=== PATIENT | male | born 1955 | race Caucasian/White ===

== ENCOUNTER 2018-07-28 17:09 | Observation (INO) | payer BC ==
[~2018-07-28 17:09] MED LIST: ISOVUE-370 76%-LOCM 1 ML ONE
--- NOTE | 2018-07-28 19:16 | CT ---
FEXAM: CT angiogram chest and abdomen with IV contrast and 3-D MIP reconstructions PROVIDED CLINICAL HISTORY: Chest pain COMPARISON: 09/13/2007 FINDINGS: Postoperative changes of CABG are demonstrated. The heart, pericardium and great vessels demonstrate an otherwise unremarkable CT appearance. There is no evidence for aortic dissection. There is no evid ence for central or segmental pulmonary embolus. The lungs are free of significant opacity. No pleura l fluid or pneumothorax apparent. No evidence for thoracic lymph node enlargement. The airway appears patent and of normal caliber. The solid abdominal organs are suboptimally evaluated in the arterial phase of contrast but demonstra te an unremarkable CT appearance for the phase of contrast in which the study was acquired. Vascular calcifications are noted. No bowel dilatation, inflammatory fat stranding, free fluid or free air david arent. The osseous structures demonstrate no concerning lytic or blastic lesions. IMPRESSION: No evidence for an acute process.
[2018-07-28 21:11] LABS: Troponin I Less than 0.010 ng/mL (< 0.028)
[2018-07-28 22:01] VITALS: BMI 30.9
[2018-07-29 01:06] LABS: Troponin I Less than 0.010 ng/mL (< 0.028)
[2018-07-29] MEDS ORDERED: Acetaminophen 325 MG TAB PO PRN (02:03)
[2018-07-29] MEDS ORDERED: Acetaminophen 650 MG Suppository PR PRN (02:03)
[2018-07-29] MEDS ORDERED: Ondansetron PF 4 MG/2 ML Vial IVP PRN (02:03)
[2018-07-29] MEDS ORDERED: Ondansetron ODT 4 MG TAB PO PRN (02:03)
[2018-07-29] MEDS ORDERED: Guaifenesin DM 100-10/5 ML UDCUP PO PRN (02:03)
[2018-07-29] MEDS ORDERED: Dextrose 5% in Water 1,000 ML IV PRN (02:27)
[2018-07-29] MEDS ORDERED: Dextrose 50% Abboject 50 ML SYRINGE SLOW IVP PRN (02:27)
[2018-07-29] MEDS ORDERED: HumaLOG 300 UNITS/3 ML VIAL SC PRN ×2 (02:27)
--- NOTE | 2018-07-29 03:18 | HP ---
CHIEF COMPLAINT: Episode of chest pain with presyncopal episode. HISTORY OF PRESENT ILLNESS: Mr. Loya is a pleasant 62-year-old man with a background of coronary artery disease who had stents placed in 2001 and then a CABG in 2012 at which time, the stents were removed. He also has a background history of hypertension, type 2 diabetes, hypercholesterolemia, and COPD. The patient was following with Dr. Bui, but has not seen him for 3 years. He presents today after having a forceful coughing fit, lasting approximately 1 minute, followed by a sharp, stabbing pain on the left side of his chest and feelings of "doom." He felt as if he was going to collapse. The patient did not fall, never recalls immediately calling the EMS. He denies any diaphoresis, nausea, or vomiting. He was back to baseline within a few minutes and has had no repeat episodes since then. The patient denies experiencing any palpitations. He reports a chronic cough associated with his chronic bronchitis and states he seldom is able to bring up phlegm, which is usually clear. Denies any purulent sputum or hemoptysis. Has not had any lightheadedness or dizziness before or since then. The patient states he has had episodes in the past in which coughing fits are followed by lightheadedness and blurred vision that resolves very quickly within seconds. He has not had an episode like this before. The cough has become more forceful and he does report a constant itching sensation in his throat. He reports noting wheezing at baseline and that has not worsened. He had been recommended inhalers, but feels reluctant to use one. REVIEW OF SYSTEMS: He denies having any fevers, chills, or sweats. Reports having normal appetite. No recent weight loss. Denies having any abdominal pain or cramping, but has been noting recurring umbilical hernia which has been repaired in the past. He feels this is being exacerbated by the forceful coughing fits. He denies having any diarrhea, constipation, melena, hematochezia. Denies having any urinary symptoms. All other review of systems apart from those mentioned in the HPI are negative. PAST MEDICAL HISTORY: 1. History of kidney stones. 2. Peptic ulcer disease. 3. Previous NE. 4. Stents x2 placed in 2002. Removed in 2012, at which time he had a CABG. 5. Hypertension. 6. Type 2 diabetes. 7. Hypercholesterolemia. 8. Hernia repair. SOCIAL HISTORY: The patient reports smoking marijuana. Denies any further tobacco use since more than 10 years ago. Denies any heavy alcohol. ALLERGIES: NORCO CAUSES HIVES. CURRENT MEDICATIONS: 1. Lisinopril. 2. Metoprolol. 3. Metformin. 4. Aspirin. 5. Atorvastatin. 6. Prilosec. 7. Glipizide. PHYSICAL EXAMINATION: GENERAL: The patient appears well developed, well nourished, and is in no acute distress. VITAL SIGNS: Temperature 97.6, pulse is 67, respirations 17, O2 saturation 98% on room air, BP 141/61. HEENT: Normocephalic and atraumatic. Pupils are equal, round, and reactive to light. Sclerae are without icterus. Oropharynx is clear. NECK: Supple without lymphadenopathy. LUNGS: Notable for inspiratory and expiratory wheezing at the bilateral apices. No crackles. CARDIAC: Regular rate and rhythm without audible murmurs, rubs, or gallops. No chest wall tenderness. ABDOMEN: Soft, nontender, nondistended. Normoactive bowel sounds present. No guarding or rigidity. No renal angle tenderness. EXTREMITIES: Without any edema, calf pain, or tenderness. LABORATORY DATA: White blood count 6.8, hemoglobin 13.9, hematocrit 39.3, platelets 273. D-dimer 221. Sodium 140, potassium 4.2, chloride 104, carbon dioxide 23, anion gap 17, BUN 15, creatinine 1.18, GFR 63, glucose 361, calcium 9.5, total bilirubin 0.4, AST 20, ALT 18, alkaline phosphatase 106. Troponin negative x3. Total protein 6.7, albumin 4.2. IMAGING DATA: 1. Chest x-ray. No acute intrathoracic findings. 2. CT dissection. No evidence for any acute process. Vascular calcifications are noted. IMPRESSION AND PLAN: Mr. Loya is a pleasant 62-year-old man who is being admitted for management of the following. 1. Chest pain. The patient has extensive cardiac history. He has undergone initial investigations including serial troponins which were all negative. He also underwent an ECG in the ER, which was unremarkable. He was admitted for chest pain rule out. He had a D-dimer that was elevated, however, underwent a CT dissection that was unremarkable. The patient has had no further episodes since then. Continue to monitor. We will obtain a BNP. At this present time, Dr. Horn has advised a consult to Cardiology, Dr. Bui. No indication for further workup such as echo or stress test at this present time. 2. Presyncope. It is likely that the chest pain and presyncopal episode were precipitated by the forceful coughing fit. He has had blurred vision and lightheadedness associated with coughing fits in the past. This episode lasted approximately 1 minute. We will give guaifenesin DM for cough. 3. Chronic obstructive pulmonary disease. The patient states he experiences wheezing at baseline and is not different from today. He has refused inhalers in the past, but is agreeable to receive DuoNeb at this present time. We will reassess breath sounds following nebulizer treatment. Perhaps, he will consider going home on an inhaler if symptoms improve and he is cleared for discharge. 4. Diabetes mellitus. Resume home medications. Initiate insulin sliding scale and monitor glucose. 5. Hypertension. Resume home medications and monitor blood pressure. 6. Gastrointestinal prophylaxis. 7. Deep venous thromboembolism prophylaxis. 8. Full code status. His surrogate decision maker is his , Irma Loya. The patient's case was discussed with Dr. Horn who agrees with the plan of care as described above. Job ID: [id number] [facility]
[2018-07-29 05:24] LABS: #Basophils 0.1 thou/uL (0.0-0.2); #Eosinphils 0.4 thou/uL (0.0-0.7); #Lymphocytes 1.4 thou/uL (1.20-3.40); #Monocytes 0.8 thou/uL (0.11-0.59); #Neutrophils 3.8 thou/uL (1.40-6.50); %Basophils 0.9 % (0.0-1.0); %Eosinophils 5.8 % (0.0-10.0); %Lymphocytes 22.2 % (21.0-51.0); %Monocytes 12.6 % (0.0-10.0); %Neutrophils 58.5 % (42.0-75.0); Hemoglobin 13.1 g/dL (14.0-18.0); Mean Corpuscular HGB CONC 35.1 g/dL (32.0-36.0); Mean Corpuscular Hemoglobin 33.1 pg (27.0-31.0); Mean Corpuscular Volume 94.2 fL (78.0-98.0); Mean Platelet Volume 8.5 fL (7.4-10.4); Platelet Count 222 thou/uL (130-400); RBC Distribution Width 12.1 % (11.5-14.5); Red Blood Cell (RBC) Count 3.96 mill/uL (4.70-6.10); White Blood Cell (WBC) Count 6.5 thou/uL (4.8-10.8)
[2018-07-29 05:28] LABS: Hemoglobin A1c 8.9 % (4.0-6.0)
[2018-07-29 05:46] LABS: Anion Gap 13 mmol/L (10-20); BUN (Urea Nitrogen) 12 mg/dL (8.4-25.7); Calc. Creatinine Clearance 130 mL/min (70-130); Calcium 9.2 mg/dL (7.8-10.44); Carbon Dioxide 23 mmol/L (22-29); Cardiac Risk 5.7 (Less than 4.5); Chloride 107 mmol/L (98-107); Cholesterol 189 mg/dl (< 200 Desired); Estimated GFR-MDRD Greater than 90; Glucose 163 mg/dL (70-105); HDL Cholesterol 33 mg/dL (>60 Neg Risk); LDL Cholesterol, Calculated 103 mg/dL; Potassium 4.4 mmol/L (3.5-5.1); Sodium 139 mmol/L (136-145); Triglycerides 266 mg/dL (Less than 150)
[2018-07-29] MEDS ORDERED: Lisinopril 20 MG TAB PO SCH (09:00)
[2018-07-29] MEDS ORDERED: Aspirin 81 mg Enteric Coated Tablet PO SCH ×2 (09:00→21:00)
[2018-07-29] MEDS: FLUoxetine HCl 20 MG CAP PO SCH (09:43)
[2018-07-29] MEDS: Ubidecarenone 50 MG CAP PO SCH (09:43)
[2018-07-29] MEDS: Famotidine 20 MG TAB PO SCH ×2 (09:44→22:07)
[2018-07-29] MEDS: Enoxaparin Sodium 40 MG/0.4 ML SYRINGE SC SCH (13:20)
--- NOTE | 2018-07-29 16:51 | PDOC.EVN ---
Event Note - Event Note Event Note: Patient lying in bed with family at bedside. He denies any further chest pain, shortness of breath or abdominal pain. He denies palpitations. He is complaining of a mild headache. He could not follow NPO instructions for stress test, therefore will undergo resting portion today and stress portion tomorrow. He will likely be discharged home if stress test negative, however cardiology will be consulted if abnormal
[2018-07-29] MEDS: Ibuprofen 200 MG TAB PO PRN ×2 (17:01→17:40)
[2018-07-29] MEDS ORDERED: Temazepam 15 MG CAP PO PRN (20:43)
[2018-07-29] MEDS ORDERED: traMADol HCl 50 MG TAB PO PRN (20:43)
[2018-07-29] MEDS ORDERED: Atorvastatin Calcium 40 MG TAB PO SCH (21:00)
--- NOTE | 2018-07-30 01:15 | CON ---
DATE OF CONSULTATION: HISTORY: Jcarlos Loya is a 62-year-old white male, I initially evaluated in February 2002. Six days prior to today, he began to notice exertional chest pressure radiating to his left arm that would occur when he was at work, walking long distances, or carrying something. This would resolve with rest in 5 to 10 minutes. On the day prior to his admission, he had 5 to 6 episodes and the night prior to admission, he had his first episode of nocturnal pain, awakening him every 30 minutes, lasting approximately 10 minutes. He then went to the emergency room, was diaphoretic and in the ER was given Ecotrin as well as Plavix 300 mg, nitroglycerin paste was placed. He continued to have the discomfort. IV nitroglycerin was started. He was bradycardic with heart rates in the 30s. He had some nausea associated with that. This was all performed at [facility] and then he was transferred to [place]. EKG showed inverted T-waves in lead III and F. He underwent catheterization, had mild inferior hypokinesis with ejection fraction of 55% to 60%. Left main, LAD, and circumflex were normal. The right coronary artery had a 95% mid stenosis. Express II 4.0 x 20 mm and 4.0 x 12 mm stents were placed. 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 Stents were post dilated to 5 mm. He did have elevation in his cardiac enzymes with a peak CK of 404, CK-MB 35.7, and a troponin I of 10.4. He was placed on Toprol for elevated blood pressure and Lipitor for hypercholesterolemia. Mr. Loya continued to be followed in the office and underwent stress echo testing in August 2002 and December 2003 which were negative for ischemia. In September 2007, he underwent adenosine Cardiolite testing which revealed a fixed inferior wall defect with no evidence of reversible ischemia. He was not seen from February 2008 until August 2012 when he presented to the hospital. He had stopped taking Lipitor. He also had stopped taking aspirin 1 year prior after he was told that he had peptic ulcer disease. He presented with left arm discomfort, radiating somewhat to the left upper chest, lasting up to 20 minutes at a time. He also had some flank pain and when he went to [facility], underwent CT stone protocol, was found not to have any nephrolithiasis like he had in the past. He did have elevated cardiac enzymes and was transferred. He underwent cardiac catheterization which revealed moderate anteroapical hypokinesis with ejection fraction of 45% to 50%. There was a 20% left main stenosis, 70% proximal LAD, 60% distal LAD, 99% mid circumflex. The right coronary artery had a 60% proximal and 60% mid stenosis. There was 60% in-stent restenoses of the right coronary artery. He underwent CABG x3 by Dr. Sheldon with VILLANUEVA to the LAD, radial artery to the distal circumflex, and saphenous vein graft to the right PDA. Postoperatively, he had rapid atrial fibrillation and was treated with Cardizem, amiodarone, and a beta aaron. He was last seen in the office in March 2015 complaining of mild shortness of breath after walking one mile. He had cough productive of yellow sputum. I had not seen him since that time, and he was on Zetia as well as the atorvastatin, he had high LDL levels and consideration was given to possibly starting Repatha or Praluent. He now is admitted with a near syncopal spell. He states that every morning he has very severe coughing and at times will cough up some yellow sputum. Yesterday, he had a particularly bad episode and felt as if he was passing out where his vision darkened. He also had left-sided sharp chest pain lasting 15 seconds in 3 different areas. Cardiac enzymes have been unremarkable. In the emergency room, he underwent CT dissection protocol, which revealed no evidence of an acute process. He has not had any further symptoms since admission. PAST MEDICAL HISTORY: Hypertension, hypercholesterolemia, diabetes, peptic ulcer disease, nephrolithiasis, myocardial infarction. OPERATIONS: Umbilical herniorrhaphy, lithotripsy, stent placed in the right coronary artery, and CABG x3. SOCIAL HISTORY: He stopped smoking 15 years ago. Continues to smoke marijuana. He denies any alcohol intake. MEDICATIONS: 1. Aspirin 81 daily. 2. Atorvastatin 80 at bedtime. 3. Fluoxetine 60 daily. 4. Glipizide 5 mg p.r.n. 5. Lisinopril 20 daily. 6. Metformin 1000 b.i.d. 7. Metoprolol 50 daily. 8. CoQ10 at 100 daily. 9. When he was last seen in the office, he also was on Zetia, which he is not currently taking and he thinks he may have stopped taking it due to the tobar. ALLERGIES: CODEINE. REVIEW OF SYSTEMS: 10-point review of systems unremarkable. PHYSICAL EXAMINATION: VITAL SIGNS: Blood pressure 143/77, pulse 61. HEENT: PERRL. NECK: Supple. CHEST: Reveals expiratory wheezing. CARDIOVASCULAR EXAMINATION: S1, S2 normal without any S3, S4, or murmurs. ABDOMEN: Normal bowel sounds without tenderness or organomegaly. EXTREMITIES: Revealed no clubbing, cyanosis, or edema. NEUROLOGIC: Grossly intact. SKIN: Warm and dry. LABORATORY DATA: EKG revealed normal sinus rhythm and is normal. CT dissection was unremarkable. Chest x-ray did not show any acute findings. Hemoglobin 13.1, hematocrit 37.3, white count 6500, platelets 222,000. D-dimer 2.21. Sodium 139 , potassium 4.4, chloride 107, carbon dioxide 27, BUN 12, creatinine 0.86. Cholesterol 189, triglycerides 266, HDL 33, and LDL 103. Cardiac enzymes were normal x4. IMPRESSION: 1. Cough with near syncope. It does not sound as if he had true syncope. His cough could be due to chronic bronchitis and chronic obstructive pulmonary disease, but also maybe due to his LUZ inhibitor. 2. Sharp chest discomfort lasting 15 seconds which does not sound cardiac in nature. 3. Chronic obstructive pulmonary disease, chronic bronchitis with expiratory wheezing. 4. Hypertension. 5. Hypercholesterolemia, under poor control. The patient no longer taking Zetia. 6. Former smoker. 7. Marijuana abuse. 8. Diabetes. 9. Positive family history. 10. History of non-bleeding peptic ulcer. PLAN: Lisinopril will be discontinued and instead, he will be placed on losartan. He also will be started on neb treatments with his expiratory wheezing at this time. Pulmonary function tests will be obtained. He will undergo e-SENS Cardiolite testing. Job ID: [id number] [facility]
[2018-07-30] MEDS ORDERED: Losartan 25 MG TAB PO SCH (09:00)
[2018-07-30] MEDS ORDERED: Ezetimibe 10 MG TAB PO SCH (09:00)
[2018-07-30] MEDS: Enoxaparin Sodium 40 MG/0.4 ML SYRINGE SC SCH (09:09)
[2018-07-30] MEDS: Famotidine 20 MG TAB PO SCH (09:10)
[2018-07-30] MEDS: Ubidecarenone 50 MG CAP PO SCH (09:11)
[2018-07-30] MEDS: FLUoxetine HCl 20 MG CAP PO SCH (09:11)
--- NOTE | 2018-07-30 11:45 | NM ---
NUCLEAR MEDICINE CARDIAC PERFUSION EXAMINATION WITH EJECTION FRACTION: COMPARISON: 06/08/13. HISTORY: 62-year-old male with chest pain. History of CABG and coronary artery disease. TECHNIQUE: A two day nuclear medicine cardiac perfusion examination was performed. Rest images were obtained usi ng 29.6 mCi of technetium-99m sestamibi. Stress images were obtained using 31.1 mCi of technetium-99m sestamibi and Lexiscan. FINDINGS: Tomographic images show no fixed or reversible perfusion defects. Gated images show normal wall motio n with an ejection fraction of 70%. EDV: 109 mL LHR: 0.3 TID: 0.78 IMPRESSION: No evidence of ischemia. POS: TPC
[2018-07-30 11:57] VITALS: BP 138/73; TEMP 98.1
[2018-07-30] MEDS ORDERED: Regadenoson 0.4 MG/5 ML SYRINGE ONE (16:22)
--- NOTE | 2018-08-05 14:29 | STRESS ---
Acquisition Time: 2018-07-30 09:38:14 Total Exercise Time: 00:01:00 Test Indications: CHEST PAIN Medications: Protocol: LEXISCAN Max HR: 116 BPM 72% of Pred: 160 BPM Max BP: 140/088 mmHG Max Work Load: 1.0 METS RESTING ECG: NORMAL SINUS RHYTHM AT 75 BPM WITH POOR R-WAVE PROGRESSION, NON-SPECIFIC ST SEGMENT CHANGES AND RARE PVC'S SYMPTOMS: NAUSEA NORMAL BP RESPONSE ECTOPY: RARE PVC'S ECG STRESS: PRONOUNCED ST SEGMENT AND T-WAVE CHANGES WITH LEXISCAN INFUSION INTERPRETATION: INDETERMINATE ECG/AWAIT NUCLEAR IMAGES FOR DEFINITVE DIAGNOSIS COMMENTS: INFERIOR ST SEGMENT DOWNSLOPING IN LEADS: II, III, AVF NON-SPECIFIC LATERAL ST SEGMENT CHANGES IN LEADS: V5-V6 Confirmed by GATITO ACUNA ELLEN ([id number]) on 08/05/2018 2:28:59 PM Referred By: MD Stefan ROMERO Confirmed By:AZAEL ACUNA PA-C
== END 2018-07-30 13:56 | disposition home or self-care (01) ==
LOC: ERS 17:09 → 2SW 21:42
PROVIDERS: ADMIT Family Medicine; ATTEND Family Medicine
DX: R55 Syncope and collapse (principal); R07.9 Chest pain, unspecified; I25.10 Atherosclerotic heart disease of native coronary artery without angina pectoris; I10 Essential (primary) hypertension; I25.2 Old myocardial infarction; E78.00 Pure hypercholesterolemia, unspecified; E11.9 Type 2 diabetes mellitus without complications; J42 Unspecified chronic bronchitis; F12.10 Cannabis abuse, uncomplicated; K27.9 Peptic ulcer, site unspecified, unspecified as acute or chronic, without hemorrhage or perforation; Z95.5 Presence of coronary angioplasty implant and graft; Z95.1 Presence of aortocoronary bypass graft; Z88.5 Allergy status to narcotic agent; Z87.442 Personal history of urinary calculi; Z87.891 Personal history of nicotine dependence; Z79.82 Long term (current) use of aspirin; Z79.84 Long term (current) use of oral hypoglycemic drugs; Z79.899 Other long term (current) drug therapy
CPT/HCPCS: 36415; 36416; 71275; 78452; 80048; 80061; 83036; 83880; 84484; 85025; 85379; 93005; 93017; 93306; 94640; 96372; A9500; G0378; J1650; J2785; J7620; Q9966

== ENCOUNTER 2022-05-31 18:23 | Inpatient (IN) | payer BC ==
[2022-05-31 19:15] LABS: #Basophils 0.1 thou/uL (0.0-0.2); #Eosinphils 0.4 thou/uL (0.0-0.7); #Lymphocytes 1.2 thou/uL (1.20-3.40); #Monocytes 1.3 thou/uL (0.11-0.59); #Neutrophils 7.7 thou/uL (1.40-6.50); %Basophils 0.5 % (0.0-1.0); %Eosinophils 3.5 % (0.0-10.0); %Lymphocytes 11.4 % (21.0-51.0); %Neutrophils 72.6 % (42.0-75.0); Hemoglobin 14.8 g/dL (14.0-18.0); Mean Corpuscular HGB CONC 34.9 g/dL (32.0-36.0); Mean Corpuscular Volume 94.7 fl (78.0-98.0); Mean Platelet Volume 8.1 fL (7.4-10.4); Platelet Count 288 10x3/uL (130-400); RBC Distribution Width 12.1 % (11.5-14.5); Red Blood Cell (RBC) Count 4.49 mill/uL (4.70-6.10); White Blood Cell (WBC) Count 10.6 10x3/uL (4.8-10.8)
[2022-05-31] MEDS ORDERED: Aspirin Chewable 81 MG TAB ONE (19:34)
[2022-05-31 19:38] LABS: ALT (SGPT) 14 U/L (8-55); AST (SGOT) 16 U/L (5-34); Albumin 4.2 g/dL (3.4-4.8); Alkaline Phosphatase 105 U/L (40-110); Anion Gap 14 mmol/L (10-20); BUN (Urea Nitrogen) 16 mg/dL (8.4-25.7); Bilirubin, Total 0.4 mg/dL (0.2-1.2); Calc. Creatinine Clearance 0 mL/min (70-130); Calcium 9.9 mg/dL (7.8-10.44); Carbon Dioxide 27 mmol/L (23-31); Chloride 102 mmol/L (98-107); Estimated GFR 70; Globulin 2.7 g/dL (2.4-3.5); Glucose 261 mg/dL (80-115); Magnesium 1.8 mg/dL (1.6-2.6); Protein, Total 6.9 g/dL (5.8-8.1); Sodium 139 mmol/L (136-145)
[2022-05-31 19:58] LABS: INR-International Normal Ratio 0.9; PTT 25.8 sec (22.9-36.1); Prothrombin Time 12.7 sec (12.0-14.7)
[2022-05-31] MEDS ORDERED: Acetaminophen 500 MG TAB ONE (21:13)
[2022-06-01 00:03] LABS: Troponin I 0.035 ng/mL (< 0.028)
[2022-06-01] MEDS ORDERED: Ondansetron ODT 4 MG TAB PO PRN (00:38)
[2022-06-01] MEDS ORDERED: Loperamide HCl 2 MG CAP PO PRN (00:38)
[2022-06-01] MEDS ORDERED: Dextrose 50% Abboject 50 ML SYRINGE SLOW IVP PRN (00:40)
[2022-06-01] MEDS ORDERED: HumaLOG 300 UNITS/3 ML VIAL SC PRN (00:40)
[2022-06-01] MEDS ORDERED: Dextrose 5% in Water 1,000 ML IV PRN (00:40)
[2022-06-01] MEDS ORDERED: Acetaminophen 325 MG TAB ONE (01:10)
[2022-06-01] MEDS ORDERED: Acetaminophen 650 MG Suppository ONE (01:10)
[2022-06-01] MEDS: Acetaminophen 325 MG TAB PO PRN ×2 (01:16→18:43)
[2022-06-01 02:10] LABS: Hemoglobin A1c 9.1 % (4.0-6.0)
[2022-06-01 02:26] LABS: Anion Gap 14 mmol/L (10-20); BUN (Urea Nitrogen) 13 mg/dL (8.4-25.7); Calc. Creatinine Clearance 0 mL/min (70-130); Carbon Dioxide 23 mmol/L (23-31); Chloride 106 mmol/L (98-107); Estimated GFR 84; Glucose 169 mg/dL (80-115); Potassium 3.8 mmol/L (3.5-5.1); Sodium 139 mmol/L (136-145); Troponin I 0.028 ng/mL (< 0.028)
[2022-06-01] MEDS ORDERED: Ondansetron ODT 4 MG TAB ONE (02:40)
[2022-06-01 02:47] VITALS: BMI 27.1
[2022-06-01] MEDS ORDERED: Baclofen 10 MG TAB PO SCH (03:30)
[2022-06-01] MEDS ORDERED: Famotidine 20 MG TAB ONE (09:49)
[2022-06-01] MEDS: Apixaban 5 MG TAB PO SCH ×2 (09:56→20:08)
[2022-06-01] MEDS: CO Q-10 CAPSULE 100 MG PO SCH (09:57)
[2022-06-01] MEDS: FLUoxetine HCl 20 MG CAP PO SCH (09:57)
[2022-06-01] MEDS: Losartan 25 MG TAB PO SCH (09:57)
[2022-06-01] MEDS: Ezetimibe 10 MG TAB PO SCH (09:57)
[2022-06-01] MEDS: metFORMIN 500 MG TAB PO SCH ×3 (09:57→20:13)
[2022-06-01] MEDS: Aspirin Chewable 81 MG TAB PO SCH (09:57)
[2022-06-01] MEDS: Famotidine 20 MG TAB PO SCH ×2 (09:57→20:08)
[2022-06-01] MEDS ORDERED: Atorvastatin Calcium 40 MG TAB PO SCH (21:00)
[2022-06-02] MEDS: Losartan 25 MG TAB PO SCH (10:17)
[2022-06-02] MEDS: Famotidine 20 MG TAB PO SCH (10:18)
[2022-06-02] MEDS: CO Q-10 CAPSULE 100 MG PO SCH (10:18)
[2022-06-02] MEDS: Aspirin Chewable 81 MG TAB PO SCH (10:18)
[2022-06-02] MEDS: metFORMIN 500 MG TAB PO SCH (10:18)
[2022-06-02] MEDS: FLUoxetine HCl 20 MG CAP PO SCH (10:19)
[2022-06-02] MEDS: Ezetimibe 10 MG TAB PO SCH (10:20)
[2022-06-02] MEDS: Apixaban 5 MG TAB PO SCH (10:20)
[2022-06-02 13:44] VITALS: BP 141/77; TEMP 98.3
[2022-06-02] MEDS ORDERED: Dronedarone HCl 400 MG TAB PO SCH (17:00)
[2022-06-03] MEDS ORDERED: Aspirin 81 mg Enteric Coated Tablet PO SCH (09:00)
[2022-06-04] MEDS ORDERED: FLU VACC QS2022-23(6MOS UP)/PF 60 MCG/0.5 ML SYRINGE IM ONE (09:00)
== END 2022-06-02 15:40 | disposition home or self-care (01) | DRG 309 ==
LOC: ERS 18:23 → ERHOLD 23:09 → 2SW 06-01 11:31
PROVIDERS: ADMIT Student in an Organized Health Care Education/Training Program; ATTEND Internal Medicine
DX: I48.0 Paroxysmal atrial fibrillation (principal); E87.20 Acidosis, unspecified; I25.810 Atherosclerosis of coronary artery bypass graft(s) without angina pectoris; I10 Essential (primary) hypertension; E78.5 Hyperlipidemia, unspecified; E11.9 Type 2 diabetes mellitus without complications; R77.8 Other specified abnormalities of plasma proteins; J44.9 Chronic obstructive pulmonary disease, unspecified; Z88.5 Allergy status to narcotic agent; Z88.8 Allergy status to other drugs, medicaments and biological substances; Z79.84 Long term (current) use of oral hypoglycemic drugs; Z79.899 Other long term (current) drug therapy; Z95.1 Presence of aortocoronary bypass graft; Z79.82 Long term (current) use of aspirin; I25.2 Old myocardial infarction; Z98.890 Other specified postprocedural states; Z87.11 Personal history of peptic ulcer disease; Z20.822 Contact with and (suspected) exposure to COVID-19
CPT/HCPCS: 36415; 36416; 71045; 80048; 80053; 83036; 83605; 83735; 83880; 84484; 85025; 85610; 85730; 93005; 93306; 94760; 96372; 96374; 96376; J1650; Q0162; U0003; U0005

== ENCOUNTER 2022-06-03 06:32 | Observation (INO) | payer BC ==
[2022-06-03] MEDS ORDERED: Diltiazem 125 MG/25 ML ONE ×2 (07:12→16:18)
[2022-06-03] MEDS ORDERED: Famotidine/PF 20 mg/2ml Vial ONE (07:39)
[2022-06-03 07:55] LABS: #Basophils 0.1 thou/uL (0.0-0.2); #Eosinphils 0.3 thou/uL (0.0-0.7); #Monocytes 1.5 thou/uL (0.11-0.59); #Neutrophils 11.8 thou/uL (1.40-6.50); %Basophils 0.4 % (0.0-1.0); %Eosinophils 1.7 % (0.0-10.0); %Lymphocytes 6.5 % (21.0-51.0); %Monocytes 10.3 % (0.0-10.0); %Neutrophils 81.1 % (42.0-75.0); Hemoglobin 15.5 g/dL (14.0-18.0); Mean Corpuscular HGB CONC 34.9 g/dL (32.0-36.0); Mean Corpuscular Hemoglobin 32.9 pg (27.0-31.0); Mean Corpuscular Volume 94.4 fl (78.0-98.0); Mean Platelet Volume 8.1 fL (7.4-10.4); Platelet Count 310 10x3/uL (130-400); RBC Distribution Width 12.1 % (11.5-14.5); Red Blood Cell (RBC) Count 4.72 mill/uL (4.70-6.10); White Blood Cell (WBC) Count 14.5 10x3/uL (4.8-10.8)
[2022-06-03 07:59] LABS: ALT (SGPT) 12 U/L (8-55); AST (SGOT) 15 U/L (5-34); Albumin 4.2 g/dL (3.4-4.8); Alkaline Phosphatase 109 U/L (40-110); Anion Gap 15 mmol/L (10-20); BUN (Urea Nitrogen) 14 mg/dL (8.4-25.7); Bilirubin, Total 1.1 mg/dL (0.2-1.2); Calc. Creatinine Clearance 0 mL/min (70-130); Calcium 9.4 mg/dL (7.8-10.44); Carbon Dioxide 21 mmol/L (23-31); Chloride 103 mmol/L (98-107); Estimated GFR 74; Globulin 2.6 g/dL (2.4-3.5); Glucose 257 mg/dL (80-115); Potassium 3.8 mmol/L (3.5-5.1); Protein, Total 6.8 g/dL (5.8-8.1); Sodium 135 mmol/L (136-145)
[2022-06-03] MEDS ORDERED: Ketorolac Tromethamine 30 MG/ML VIAL ONE (08:54)
[2022-06-03] MEDS ORDERED: Ondansetron PF 4 MG/2 ML Vial IVP PRN (09:05)
[2022-06-03] MEDS ORDERED: Diltiazem 125 MG in Sodium Chloride 0.9% 100 ML IVPB SCH (09:15)
[2022-06-03] MEDS ORDERED: HumaLOG 300 UNITS/3 ML VIAL SC PRN (10:08)
[2022-06-03] MEDS ORDERED: Dextrose 50% Abboject 50 ML SYRINGE SLOW IVP PRN (10:08)
[2022-06-03] MEDS ORDERED: Dextrose 5% in Water 1,000 ML IV PRN (10:08)
[2022-06-03] MEDS: Sodium Chloride 0.9% 1,000 ML IV SCH ×2 (14:02→18:19)
[2022-06-03] MEDS ORDERED: HumaLOG 300 UNITS/3 ML VIAL ONE (16:42)
[2022-06-03] MEDS: Dronedarone HCl 400 MG TAB PO SCH (18:05)
[2022-06-03 18:35] VITALS: BMI 26.9
[2022-06-03] MEDS: Acetaminophen 325 MG TAB PO PRN (19:01)
[2022-06-03] MEDS: Atorvastatin Calcium 40 MG TAB PO SCH (20:12)
[2022-06-03] MEDS: Apixaban 5 MG TAB PO SCH (20:13)
[2022-06-04] MEDS: Sodium Chloride 0.9% 1,000 ML IV SCH ×4 (02:10→20:24)
[2022-06-04 05:22] LABS: #Eosinphils 0.3 thou/uL (0.0-0.7); #Lymphocytes 0.7 thou/uL (1.20-3.40); #Neutrophils 5.9 thou/uL (1.40-6.50); %Basophils 0.5 % (0.0-1.0); %Eosinophils 3.8 % (0.0-10.0); %Monocytes 12.2 % (0.0-10.0); %Neutrophils 74.6 % (42.0-75.0); Hemoglobin 13.5 g/dL (14.0-18.0); Mean Corpuscular HGB CONC 34.8 g/dL (32.0-36.0); Mean Corpuscular Hemoglobin 33.3 pg (27.0-31.0); Mean Corpuscular Volume 95.8 fl (78.0-98.0); Platelet Count 246 10x3/uL (130-400); Red Blood Cell (RBC) Count 4.05 mill/uL (4.70-6.10); White Blood Cell (WBC) Count 7.8 10x3/uL (4.8-10.8)
[2022-06-04 05:37] LABS: Anion Gap 13 mmol/L (10-20); BUN (Urea Nitrogen) 12 mg/dL (8.4-25.7); Calc. Creatinine Clearance 99 mL/min (70-130); Calcium 8.6 mg/dL (7.8-10.44); Carbon Dioxide 22 mmol/L (23-31); Chloride 107 mmol/L (98-107); Estimated GFR 88; Glucose 161 mg/dL (80-115); Potassium 3.6 mmol/L (3.5-5.1); Sodium 138 mmol/L (136-145)
[2022-06-04 06:28] LABS: Bacteria/HPF None Seen HPF (None Seen); Bilirubin Negative (Negative); Blood, Urine Negative (Negative); CAUTI Indications for Culture Fever or rigors; Clarity Clear (Clear); Glucose, Urine (Dipstick) 70 mg/dL (Negative); Ketone, Urine Negative (Negative); Leukocyte Negative Leu/uL (Negative); Nitrite Negative (Negative); Protein, Urine (Dipstick) Negative (Neg-Trace); RBC/HPF 0-3 HPF (0-3); Specific Gravity, Urine 1.016 (1.002-1.036); Squamous Epithelial None Seen HPF (0-3); Urobilinogen Normal mg/dL (Less than 2); WBC/HPF 0-3 HPF (0-3); pH, Urine 5.5 (5.0-9.0)
[2022-06-04 06:29] LABS: Urine Culture Reflex No No
[2022-06-04] MEDS: CO Q-10 CAPSULE 100 MG PO SCH (07:32)
[2022-06-04] MEDS: Dronedarone HCl 400 MG TAB PO SCH ×2 (07:32→17:10)
[2022-06-04] MEDS: FLUoxetine HCl 20 MG CAP PO SCH (07:33)
[2022-06-04] MEDS: Apixaban 5 MG TAB PO SCH ×2 (07:33→20:25)
[2022-06-04] MEDS: Aspirin 81 mg Enteric Coated Tablet PO SCH (07:33)
[2022-06-04] MEDS: Ezetimibe 10 MG TAB PO SCH (07:33)
[2022-06-04] MEDS: Losartan 25 MG TAB PO SCH (07:34)
[2022-06-04] MEDS: Acetaminophen 325 MG TAB PO PRN (13:42)
[2022-06-04] MEDS: Atorvastatin Calcium 40 MG TAB PO SCH (20:25)
[2022-06-05] MEDS: Sodium Chloride 0.9% 1,000 ML IV SCH ×2 (05:01→05:02)
[2022-06-05 05:04] LABS: #Basophils 0.1 thou/uL (0.0-0.2); #Eosinphils 0.3 thou/uL (0.0-0.7); #Lymphocytes 0.9 thou/uL (1.20-3.40); #Monocytes 0.8 thou/uL (0.11-0.59); #Neutrophils 3.9 thou/uL (1.40-6.50); %Basophils 0.9 % (0.0-1.0); %Eosinophils 5.2 % (0.0-10.0); %Lymphocytes 14.7 % (21.0-51.0); %Monocytes 13.1 % (0.0-10.0); %Neutrophils 66.1 % (42.0-75.0); Hemoglobin 13.1 g/dL (14.0-18.0); Mean Corpuscular HGB CONC 35.2 g/dL (32.0-36.0); Mean Corpuscular Hemoglobin 33.6 pg (27.0-31.0); Mean Corpuscular Volume 95.4 fl (78.0-98.0); Mean Platelet Volume 8.1 fL (7.4-10.4); Platelet Count 236 10x3/uL (130-400); RBC Distribution Width 12.1 % (11.5-14.5); Red Blood Cell (RBC) Count 3.89 mill/uL (4.70-6.10); White Blood Cell (WBC) Count 5.9 10x3/uL (4.8-10.8)
[2022-06-05 05:33] LABS: Anion Gap 12 mmol/L (10-20); BUN (Urea Nitrogen) 8 mg/dL (8.4-25.7); Calc. Creatinine Clearance 100 mL/min (70-130); Calcium 8.6 mg/dL (7.8-10.44); Carbon Dioxide 21 mmol/L (23-31); Chloride 110 mmol/L (98-107); Estimated GFR 89; Glucose 125 mg/dL (80-115); Magnesium 1.6 mg/dL (1.6-2.6); Potassium 3.5 mmol/L (3.5-5.1); Sodium 139 mmol/L (136-145)
[2022-06-05] MEDS: Dronedarone HCl 400 MG TAB PO SCH (07:57)
[2022-06-05 08:15] VITALS: BP 151/78; TEMP 97.6
[2022-06-05] MEDS: Aspirin 81 mg Enteric Coated Tablet PO SCH (09:09)
[2022-06-05] MEDS: Losartan 25 MG TAB PO SCH (09:09)
[2022-06-05] MEDS: FLUoxetine HCl 20 MG CAP PO SCH (09:09)
[2022-06-05] MEDS: Apixaban 5 MG TAB PO SCH (09:09)
[2022-06-05] MEDS: Ezetimibe 10 MG TAB PO SCH (09:09)
[2022-06-05] MEDS: CO Q-10 CAPSULE 100 MG PO SCH (09:10)
== END 2022-06-05 10:08 | disposition home or self-care (01) ==
LOC: ERS 06:32 → ERHOLD 08:56 → 2SW 17:55
PROVIDERS: ADMIT Family Medicine; ATTEND Family Medicine
DX: I48.0 Paroxysmal atrial fibrillation (principal); K80.20 Calculus of gallbladder without cholecystitis without obstruction; N20.0 Calculus of kidney; I10 Essential (primary) hypertension; E78.00 Pure hypercholesterolemia, unspecified; E11.9 Type 2 diabetes mellitus without complications; D64.9 Anemia, unspecified; N28.1 Cyst of kidney, acquired; K57.30 Diverticulosis of large intestine without perforation or abscess without bleeding; I25.2 Old myocardial infarction; D72.829 Elevated white blood cell count, unspecified; Z87.11 Personal history of peptic ulcer disease; Z87.891 Personal history of nicotine dependence; Z79.01 Long term (current) use of anticoagulants; Z79.82 Long term (current) use of aspirin; Z79.84 Long term (current) use of oral hypoglycemic drugs; Z79.899 Other long term (current) drug therapy; Z88.5 Allergy status to narcotic agent; Z95.1 Presence of aortocoronary bypass graft
CPT/HCPCS: 36415; 36416; 71045; 74176; 76705; 80048; 80053; 81001; 83735; 84100; 84443; 84484; 85025; 85730; 93005; 96365; 96366; 96375; G0378; J1815; J1885; J7050; S0028